=== PATIENT | male | born 1975 | race Caucasian/White ===

== ENCOUNTER 2019-11-08 11:33 | Emergency (ER) | payer OTHER ==
[~2019-11-08] VITALS: Ht 172.7 cm; Wt 2.5 kg
[2019-11-08 11:35] VITALS: Ht 172.7 cm; Wt 2.5 kg
[2019-11-08 12:30] VITALS: BP 131/88
== END 2019-11-08 12:30 | disposition other institution (70) ==
LOC: ED 11:33
DX: R07.89 Other chest pain (principal)

== ENCOUNTER 2019-11-08 11:33 | Emergency (ER) | payer OTHER | END 2019-11-08 12:30 | disposition other institution (70) | LOC: ED 11:33 | DX: Z02.89 Encounter for other administrative examinations (principal) ==